=== PATIENT | male | born 1980 | race Caucasian/White ===

== ENCOUNTER 2016-09-03 23:35 | Emergency (ER) | payer OTHER ==
[2016-09-03 23:50] VITALS: BP 134/61; PULSE 88; RESP 18; TEMP 99.3
--- NOTE | 2016-09-04 00:23 | ED ---
Lower Extremity Injury HPI - General Chief Complaint: Extremity Injury, Lower Stated Complaint: Ankle Injury Time Seen by Provider: 09/03/16 23:56 Source: patient, RN notes reviewed Mode of arrival: ambulatory Limitations: no limitations - History of Present Illness Initial Comments: 36-year-old male presents emergency Department chief complaint right ankle injury. Patient states she was swimming in which she was swinging back and forth several times and states that the Cipro. Patient states he landed awkwardly on his right ankle. Patient states that he had the [employer] evaluate him and states that he was placing ice on it and took some ibuprofen and naproxen. Patient states that the pain is not improving and states that he woke up and tried to step on his foot and had increased pain. Patient has no prior broken bones in his right ankle. Denies any paresthesias he denies any head injury and no other injuries at this time. - Related Data Home Medications Medication Instructions Recorded Confirmed Acyclovir [Zovirax] 200 mg PO DAILY 09/03/16 09/03/16 Atenolol [Tenormin] 25 mg PO DAILY 09/03/16 09/03/16 LORazepam [Ativan] 2 mg PO HS 09/03/16 09/03/16 lamoTRIgine [LaMICtal] 400 mg PO DAILY 09/03/16 09/03/16 Allergies Allergy/AdvReac Type Severity Reaction Status Date / Time paroxetine [From Paxil] Allergy syncope Verified 09/03/16 23:51 quetiapine [From Seroquel] Allergy Unknown Verified 09/03/16 23:51 risperidone [From Risperdal] Allergy Unknown Verified 09/03/16 23:51 Review of Systems ROS Statement: Those systems with pertinent positive or pertinent negative responses have been documented in the HPI. ROS Other: All systems not noted in ROS Statement are negative. Past Medical History Past Medical History: Supraventricular Tachycardia (SVT) Additional Past Medical History / Comment(s): Personality disorder History of Any Multi-Drug Resistant Organisms: None Reported Past Surgical History: Cardiac Ablation, Hernia Repair Additional Past Surgical History / Comment(s): Inguinal hernia Past Psychological History: Bipolar Smoking Status: Never smoker Past Alcohol Use History: None Reported Past Drug Use History: None Reported General Exam Limitations: no limitations General appearance: alert, in no apparent distress Head exam: Present: atraumatic, normocephalic, normal inspection Eye exam: Present: normal appearance, PERRL, EOMI. Absent: scleral icterus, conjunctival injection, periorbital swelling Respiratory exam: Present: normal lung sounds bilaterally. Absent: respiratory distress, wheezes, rales, rhonchi, stridor Cardiovascular Exam: Present: regular rate, normal rhythm, normal heart sounds. Absent: systolic murmur, diastolic murmur, rubs, gallop, clicks Extremities exam: Present: other (Right ankle there is moderate tenderness on the lateral malleolus mild swelling neurovascular intact there is no foot tenderness and no tenderness of the tib-fib proximal to the right ankle.) Neurological exam: Present: alert, oriented X3, CN II-XII intact Skin exam: Present: warm, dry, intact, normal color. Absent: rash Course Vital Signs 09/03/16 23:47 Temperature 99.3 F Pulse Rate 88 Respiratory 18 Rate Blood Pressure 134/61 O2 Sat by Pulse 98 Oximetry Medical Decision Making - Medical Decision Making 36-year-old male present emergency department for ankle pain. Patient has no acute fracture per x-ray reading. Patient has right ankle sprain. Patient be discharged at this time. Disposition Clinical Impression: Right ankle sprain Disposition: HOME SELF-CARE Condition: Stable Instructions: Ankle Sprain (ED) Additional Instructions: Please return to the Emergency Department if symptoms worsen or any other concerns. Referrals: Francis Cowart MD [Primary Care Provider] - 1-2 days Time of Disposition: 00:50
--- NOTE | 2016-09-04 00:43 | XR ---
EXAM: XR Right Ankle Complete, 3 or More Views CLINICAL HISTORY: Reason: right ankle pain from falling off of a swing TECHNIQUE: Frontal, lateral and oblique views of the right ankle. COMPARISON: None FINDINGS: Bones/joints: No acute fracture or dislocation identified. Joint space is maintained. No bony lesion. No joint effusion. Soft tissues: Normal. IMPRESSION: No acute abnormality identified.
[2016-09-04] MEDS ORDERED: Acetaminophen-Codeine 300-30mg TAB PO STA (00:53)
== END 2016-09-04 01:18 | disposition home or self-care (01) ==
LOC: EC 23:35
DX: S93.401A Sprain of unspecified ligament of right ankle, initial encounter (principal); F31.9 Bipolar disorder, unspecified; Z79.899 Other long term (current) drug therapy; Z88.8 Allergy status to other drugs, medicaments and biological substances; W16.012A Fall into swimming pool striking water surface causing other injury, initial encounter; Y93.11 Activity, swimming; Y92.34 Swimming pool (public) as the place of occurrence of the external cause
CPT/HCPCS: 73610; 99283; 29515; L4350